=== PATIENT | male | born 1950 | race Hispanic/Latino ===

== ENCOUNTER 2017-09-07 09:52 | Day surgery (SDC) | payer MEDICARE ==
[~2017-09-07 09:52] MED LIST: TETRACAINE 0.5% OD PRN
[2017-09-07] MEDS ORDERED: NACL BACTERIOSTATIC INFILTRATI ONE (14:07)
[2017-09-07] MEDS: AK-Dilate OD SCH ×3 (14:30→14:40)
[2017-09-07] MEDS: VIGAMOX OD SCH ×3 (14:30→14:40)
[2017-09-07] MEDS: MYDRIACYL OD SCH ×3 (14:30→14:40)
[2017-09-07] MEDS ORDERED: VERSED ONE (15:25)
[2017-09-07] MEDS ORDERED: DIAMOX PO ONE (15:42)
--- NOTE | 2017-09-07 15:43 | Operative Report ---
Operative Report Operative Report: PATIENT'S NAME: DATE OF : DATE OF SURGERY: 09/07/2017 PREOPERATIVE DIAGNOSIS: Cataract right eye POSTOPERATIVE DIAGNOSIS: Same OPERATIVE PROCEDURE: Phacoemulsification with intraocular lens implantation, right eye SURGEON: Mary Ellen Morrissey M.D. BUILDING CONSTRUCTION CONTRACTOR SURGEON: Ha Lens: [id number] 17.0 D ANESTHESIA: Monitored anesthesia care in combination with topical and intracameral anesthesia because of the established specific risk of reflux, arrhythmias, or anxiety attacks associated with ocular manipulation, as well as the difficulty of the golf club facer to manage such potentially catastrophic events while simultaneously attempting to complete the surgical procedure and was deemed necessary for the patient's safety to have an Propeller Layout Worker present during the procedure whenever possible. An Propeller Layout Worker was utilized to regulate the intravenous sedation of the patient so the patient was cooperative yet not asleep in order for the patient to successfully maintain fixation of the eye on the operating light of the microscope. COMPLICATIONS: No surgical complications No blood loss. ALLERGIES: N known drug allergies PROGNOSIS: Excellent INDICATIONS FOR SURGERY: The patient is undergoing surgery in the hopes of eliminating or improving these visual difficulties. PROCEDURE: After arriving at the surgery center, the patient was given topical anesthetic and dilating drops, as noted in the record. The patient was then taken into the operating room and given more anesthetic drops. The eyelids , lashes, and lid margins were scrubbed with Betadine solution, and the patient was draped. The Nurse Propeller Layout Worker administered IV sedation and monitored the patient during the procedure. The eye was then fixated with a 0.12, and a stab incision was made in the peripheral clear cornea into the anterior chamber. This was made on my left side. Viscoelastic was next used to fill the anterior chamber. The eye was once again fixated with the 0.12 forceps and a keratome was used make an incision in clear cornea peripherally on my right hand side temporally. The capsule forceps were used to open the central anterior capsule and then make a continuous round capsulotomy. Hydrodissection was carried out utilizing a cannula and balanced salt solution to delineate the cortical material from the capsule and the nucleus from the cortical material. The phaco tip was introduced into the eye and used to remove the anterior cortical material in the area of the capsulotomy. Then the phaco tip was buried into the nucleus, and a chopping instrument was introduced into the eye and used to provide countertraction in the nucleus between this instrument and the phaco tip fracturing the nucleus. This procedure was repeated multiple times, providing multiple small segments of the lens, and then the phaco tip was used to remove each of these segments. An I/A tip was then used to remove the remaining cortex. The anterior chamber was refilled with viscoelastic. An one-piece, acrylic intraocular lens was then placed into an inserting cartridge. The tip of the inserting cartridge was introduced into the keratome incision and into the anterior chamber. The implant was gently advanced through the cartridge and into the eye, where it unfolded, and both haptics were placed in the capsular bag, where it centered nicely and appeared to be well fixated. After placement of the intraocular lens, the I~and~A handpiece was placed back into the eye and used to remove the viscoelastic, including viscoelastic that was behind the optic of the intraocular lens. The anterior chamber was then filled with balanced salt solution, and hydration of the wound was used to cause swelling of the wound and more appropriate watertight closure. When the wound was found to be firm, the patient was asked to comment on how bright the light was. If there was no light perception at all or if the light was substantially dimmer than during the rest of the surgery, the amount of fluid in the eye was decompressed to lower the intraocular pressure until the patient could see the bright light again. This was done to avoid any damage or decreased blood flow to the optic nerve. MEDICATIONS APPLIED AT END OF SURGERY: One drop of Pred Forte and Vigamox The patient was given a shield to wear at night and was instructed not to rub or push on the eye. DISCHARGE SUMMARY: The patient was released in stable condition. The patient and those with the patient were given a written sheet of postoperative instructions and counseling on any abnormal laboratory studies. The patient is to see us tomorrow for follow-up in the office and is to call immediately for any difficulties. Mary Ellen Morrissey M.D. Date
--- NOTE | 2017-09-07 15:45 | Short Stay Summary ---
Short Stay Documentation Date of service: 09/07/17 - History H&P: obtained from office - Allergies and Medications Current Medications: Allergies No Known Allergies Allergy (Verified 09/06/17 14:08) Home Medications Medication Instructions Recorded Confirmed Last Taken Type Atorvastatin Calcium 40 mg PO DAILY 09/06/17 09/07/17 09/07/17 07:00 History Citalopram Hydrobromide 20 mg PO DAILY 09/06/17 09/07/17 09/07/17 07:00 History [Citalopram HBr] Esomeprazole Magnesium [NexIUM] 20 mg PO QDAY 09/06/17 09/07/17 09/07/17 07:00 History Lisinopril 20 mg PO DAILY 09/06/17 09/07/17 09/07/17 07:00 History Active Medications Acetazolamide (Diamox) 500 mg PO ONCE ONE Stop: 09/07/17 15:43 Moxifloxacin HCl (Vigamox) 1 drops OD Q5MIN VINCE Stop: 09/09/17 06:01 Last Admin: 09/07/17 14:40 Dose: 1 drops Phenylephrine HCl (Ak-Dilate) 1 drops OD Q5MIN VINCE Stop: 09/09/17 06:01 Last Admin: 09/07/17 14:40 Dose: 1 drops Prednisolone Acetate (Pred Forte 1%) 1 drops OD QID VINCE Tetracaine HCl (Tetracaine 0.5%) 1 drops OD Q5M PRN PRN Reason: Analgesia Last Admin: 09/07/17 14:27 Dose: 1 drops Tropicamide (Mydriacyl) 1 drops OD Q5MIN VINCE Stop: 09/09/17 06:01 Last Admin: 09/07/17 14:40 Dose: 1 drops - Brief post op/procedure progress note Date of procedure: 09/07/17 Pre-op diagnosis: right cataract Post-op diagnosis: same Procedure: Phacoemulsification with intraocular lens insertion right eye Anesthesia: MAC, local Surgeon: LINDA HINSON Estimated blood loss: none Specimen disposition: to lab Condition: stable - Disposition Condition at discharge: Good Disposition: DC-01 TO HOME OR SELFCARE - Discharge Diagnoses (1) Cataract Status: Acute Qualifiers: Cataract type: age-related Age-related cataract type: nuclear Laterality : right Qualified Code(s): H25.11 - Age-related nuclear cataract, right eye Short Stay Discharge Plan Follow up with: MICHAEL MAJOR MD [Primary Care Provider] - 7 Days
--- NOTE | 2017-09-07 15:45 | Anesthesia Day of Surgery ---
Anesthesia Day of Surgery - Day of Surgery Patient Examined: Yes Patient H&P Reviewed: Yes Patient is NPO: Yes
--- NOTE | 2017-09-07 15:46 | Anesthesia Consultation ---
Anesthesia Consult and Med Hx Date of service: 09/07/17 - Airway Anesthetic Teeth Evaluation: Good ROM Head & Neck: Adequate Mental/Hyoid Distance: Adequate Mallampati Class: Class III Intubation Access Assessment: Possibly Difficult - Pulmonary Exam CTA: Yes - Cardiac Exam Cardiac Exam: RRR - Pre-Operative Health Status ASA Pre-Surgery Classification: ASA3 Proposed Anesthetic Plan: IV Sedation - Pulmonary Hx Smoking: Yes (QUIT OVER 20 YEARS AGO) COPD: Yes - Cardiovascular System Hx Hypertension: Yes (10 YEARS) - Central Nervous System Hx Psychiatric Problems: No - Other Systems Hx Alcohol Use: No Hx Substance Use: No Hx Cancer: No
--- NOTE | 2017-09-07 15:46 | Post Anesthesia Evaluation ---
- Post Anesthesia Evaluation Patient Participated: Yes Airway Patent: Yes Stable Respiratory Function: Yes Nausea/Vomiting: No Temp > 96.8F: Yes Pain Manageable: Yes Adequeate Hydration: Yes Anesthesia Complications: No
[2017-09-07 17:38] VITALS: BP 144/82
[2017-09-07] MEDS ORDERED: PRED FORTE 1% OD SCH (18:00)
== END 2017-09-07 16:32 | disposition home or self-care (01) ==
LOC: OR 09:52
DX: H26.9 Unspecified cataract (principal); E78.00 Pure hypercholesterolemia, unspecified; I10 Essential (primary) hypertension; M19.90 Unspecified osteoarthritis, unspecified site; Z79.899 Other long term (current) drug therapy
CPT/HCPCS: 66984; J2250; V2632

== ENCOUNTER 2017-09-21 07:04 | Day surgery (SDC) | payer MEDICARE ==
[~2017-09-21 07:04] MED LIST changes: -TETRACAINE 0.5% OD PRN; +TETRACAINE 0.5% OS PRN
[2017-09-21] MEDS ORDERED: NACL BACTERIOSTATIC INFILTRATI ONE (09:59)
[2017-09-21] MEDS: MYDRIACYL OS SCH ×3 (10:13→10:28)
[2017-09-21] MEDS: AK-Dilate OS SCH ×3 (10:13→10:28)
[2017-09-21] MEDS: VIGAMOX OS SCH ×3 (10:14→10:28)
--- NOTE | 2017-09-21 10:41 | Anesthesia Consultation ---
Anesthesia Consult and Med Hx Date of service: 09/21/17 - Airway Anesthetic Teeth Evaluation: Poor ROM Head & Neck: Adequate Mental/Hyoid Distance: Adequate Mallampati Class: Class II - Pulmonary Exam CTA: Yes - Pre-Operative Health Status ASA Pre-Surgery Classification: ASA3 Proposed Anesthetic Plan: MAC - Pulmonary Hx Smoking: Yes (SINCE AGE 19) COPD: Yes - Cardiovascular System Hx Hypertension: Yes (X10 YEARS) - Central Nervous System Hx Psychiatric Problems: No - Other Systems Hx Alcohol Use: No Hx Substance Use: No Hx Cancer: No
--- NOTE | 2017-09-21 10:51 | Anesthesia Day of Surgery ---
Anesthesia Day of Surgery - Day of Surgery Patient Examined: Yes Patient H&P Reviewed: Yes Patient is NPO: Yes
[2017-09-21] MEDS ORDERED: VERSED ONE (11:05)
[2017-09-21] MEDS ORDERED: SUBLIMAZE ONE (11:09)
--- NOTE | 2017-09-21 11:30 | Operative Report ---
Operative Report Operative Report: PATIENT'S NAME: DATE OF : DATE OF SURGERY: PREOPERATIVE DIAGNOSIS: Cataract and Astigmatism left Eye POSTOPERATIVE DIAGNOSIS: Same OPERATIVE PROCEDURE: Phacoemulsification with intraocular lens implantation, left eye Toric SURGEON: Mary Ellen Morrissey M.D. LENS: [id number] 18.0 AT 10 ANESTHESIA: Monitored anesthesia care in combination with topical and intracameral anesthesia because of the established specific risk of reflux, arrhythmias, or anxiety attacks associated with ocular manipulation, as well as the difficulty of the control panel tester to manage such potentially catastrophic events while simultaneously attempting to complete the surgical procedure and was deemed necessary for the patient's safety to have a Nurse Learning And Development Consultant present during the procedure whenever possible. A Nurse Learning And Development Consultant was utilized to regulate the intravenous sedation of the patient so the patient was cooperative yet not asleep in order for the patient to successfully maintain fixation of the eye on the operating light of the microscope. COMPLICATIONS: No surgical complications. No blood loss. ALLERGIES:N known drug allergies PROGNOSIS: Excellent INDICATIONS FOR SURGERY: The patient is undergoing surgery in the hopes of eliminating or improving these visual difficulties. PROCEDURE: After arriving at the surgery center, the patient was given topical anesthetic and dilating drops, as noted in the record. The patient was then taken into the operating room and given more anesthetic drops. The eyelids , lashes, and lid margins were scrubbed with Betadine solution, and the patient was draped. The Nurse Learning And Development Consultant administered IV sedation and monitored the patient during the procedure. A speculum was placed between the eyelids, and the patient was asked to fixate on the light of the microscope. The patient has been noted to have pre-existing astigmatism as well as a concern to be left with as little astigmatism as possible after surgery in order to improve their uncorrected visual acuity after surgery.~ They have, therefore, elected to have our option for astigmatism management and have signed a waiver acknowledging their understanding of the process, its benefits and risks, and wish to proceed with this option. Based on the preoperative evaluation of the topography of their corneal mapping of astigmatism, the wound orientation, wound size, and use of a relaxing incision have been utilized to minimize their post operative astigmatism. In some cases a toric, or astigmatic , intraocular lens implant may be used in conjunction with a relaxing incision or in place of one. When an astigmatic lens is used, preoperative evaluation of the topography with careful planning of the lens position and power of the astigmatic correction by lens are all done. ~The calculation of the lens power for the astigmatic correction and the lens orientation of the astigmatic lens is performed separately and subsequently from the normal lens power calculation for the standard cataract lens power needed for standard surgery without astigmatism management. ~In fact, the toric lens power calculation can not be done until the standard lens power calculations are performed and finished - so that is a totally separate part of the preoperative planning. The eye was then fixated with a round galan, which would damage the conjunctival tissues or vessel, and a stab incision was made in the peripheral clear cornea into the anterior chamber. Viscoelastic was next used to fill the anterior chamber. The eye was once again fixated with the round galan and a keratome was used make an incision in clear cornea peripherally on my right hand side temporally. Hydrodissection was carried out utilizing a U-shaped cannula and balanced salt solution to delineate the cortical material from the capsule and the nucleus from the cortical material. The phaco tip was introduced into the eye and used to remove the anterior cortical material in the area of the capsulotomy. Then the phaco tip was buried into the nucleus, and a chopping instrument was introduced into the eye and used to provide countertraction in the nucleus between this instrument and the phaco tip fracturing the nucleus. This procedure was repeated multiple times, providing multiple small segments of the lens, and then the phaco tip was used to remove each of these segments. An I/A tip was then used to remove the remaining cortex. An one-piece, acrylic intraocular lens was then placed into an inserting cartridge. The tip of the inserting cartridge was introduced into the keratome incision and into the anterior chamber. The implant was gently advanced through the cartridge and into the eye, where it unfolded, and both haptics were placed in the capsular bag, where it centered nicely and appeared to be well fixated. Prior to prepping the patient, the patient was asked to sit up on the operative bed and look across the room. ~Utilizing a special marking instrument, the cardinal meridians at 3:00, 6:00, and 9:00 were marked with Gentian stephen.~ These leach were used later in the surgery as reference lecah to identify the proper location of the axis for the placement of the astigmatic, or toric, intraocular lens.~ The axis was marked with Gentian stephen prior to entering the eye.~ After placement of the intraocular lens implant and removal of the viscoelastic from both the capsular bag and anterior chamber, the lens was positioned so it was perfectly aligned along this axis. The orientation was rechecked once the wounds were hydrated and the integrity of the wounds was verified. After placement of the intraocular lens, the I~and~A handpiece was placed back into the eye and used to remove the viscoelastic, including viscoelastic that was behind the optic of the intraocular lens. The anterior chamber was then filled with balanced salt solution, and hydration of the wound was used to cause swelling of the wound and more appropriate watertight closure. When the wound was found to be firm, the patient was asked to comment on how bright the light was. If there was no light perception at all or if the light was substantially dimmer than during the rest of the surgery, the amount of fluid in the eye was decompressed to lower the intraocular pressure until the patient could see the bright light again. This was done to avoid any damage or decreased blood flow to the optic nerve. MEDICATIONS APPLIED AT END OF SURGERY: One drop vigamox and Pred Forte The patient was given a shield to wear at night and was instructed not to rub or push on the eye. DISCHARGE SUMMARY: The patient was released in stable condition. The patient and those with the patient were given a written sheet of postoperative instructions and counseling on any abnormal laboratory studies. The patient is to see us tomorrow for follow-up in the office and is to call immediately for any difficulties. Mary Ellen Morrissey M.D. Date
--- NOTE | 2017-09-21 11:31 | Short Stay Summary ---
Short Stay Documentation Date of service: 09/21/17 - History H&P: obtained from office - Allergies and Medications Current Medications: Allergies No Known Allergies Allergy (Verified 09/19/17 13:20) Home Medications Medication Instructions Recorded Confirmed Last Taken Type Atorvastatin Calcium 40 mg PO DAILY 09/06/17 09/19/17 09/21/17 05:00 History Citalopram Hydrobromide 20 mg PO DAILY 09/06/17 09/19/17 09/21/17 05:00 History [Citalopram HBr] Esomeprazole Magnesium [NexIUM] 20 mg PO QDAY 09/06/17 09/19/17 09/21/17 05:00 History Lisinopril 20 mg PO DAILY 09/06/17 09/19/17 09/21/17 05:00 History Active Medications Acetazolamide (Diamox) 500 mg PO ONCE ONE Stop: 09/21/17 11:30 Moxifloxacin HCl (Vigamox) 1 drops OS Q5MIN VINCE Stop: 09/21/17 18:00 Last Admin: 09/21/17 10:28 Dose: 1 drops Phenylephrine HCl (Ak-Dilate) 1 drops OS Q5MIN VINCE Stop: 09/21/17 18:00 Last Admin: 09/21/17 10:28 Dose: 1 drops Prednisolone Acetate (Pred Forte 1%) 1 drops OS QID VINCE Tetracaine HCl (Tetracaine 0.5%) 1 drops OS Q5M PRN PRN Reason: Analgesia Stop: 09/21/17 18:00 Last Admin: 09/21/17 10:12 Dose: 1 drops Tropicamide (Mydriacyl) 1 drops OS Q5MIN VINCE Stop: 09/21/17 18:00 Last Admin: 09/21/17 10:28 Dose: 1 drops - Brief post op/procedure progress note Date of procedure: 09/21/17 Pre-op diagnosis: cataract and astigmatism left eye Post-op diagnosis: same Procedure: Phacoemulsification with toRIC lens insertion left eye Anesthesia: MAC, local Surgeon: LINDA HINSON Estimated blood loss: none Pathology: none Condition: stable - Disposition Condition at discharge: Good Disposition: DC-01 TO HOME OR SELFCARE - Discharge Diagnoses (1) Astigmatism of left eye Status: Resolved Qualifiers: Astigmatism type: regular Qualified Code(s): H52.222 - Regular astigmatism , left eye (2) Cataract Status: Resolved Qualifiers: Cataract type: age-related Age-related cataract type: nuclear Laterality : left Qualified Code(s): H25.12 - Age-related nuclear cataract, left eye Short Stay Discharge Plan Follow up with: MICHAEL MAJOR MD [Primary Care Provider] - 7 Days
[2017-09-21] MEDS ORDERED: DIAMOX PO ONE (12:29)
[2017-09-21 13:59] VITALS: BP 156/95
[2017-09-21] MEDS ORDERED: PRED FORTE 1% OS SCH (14:00)
== END 2017-09-21 12:05 | disposition home or self-care (01) ==
LOC: OR 07:04
DX: H26.9 Unspecified cataract (principal); H52.202 Unspecified astigmatism, left eye; J44.9 Chronic obstructive pulmonary disease, unspecified; I10 Essential (primary) hypertension; F17.200 Nicotine dependence, unspecified, uncomplicated
CPT/HCPCS: 66982; J2250; J3010; V2630